=== PATIENT | female | born 1980 | race Two or more races ===

== ENCOUNTER 2020-12-06 06:48 | Inpatient (IN) ==
[2020-12-06] MEDS ORDERED: KETALAR ONE (06:58)
[2020-12-06] MEDS ORDERED: LR 1000 ML IV 1,000 ML IV ONE (06:58)
[2020-12-06] MEDS ORDERED: PEPCID 20 MG IV PREMIX* 20 MG/50 ML BAG IV ONE (06:58)
[2020-12-06] MEDS ORDERED: DECADRON INJ ONE (06:58)
[2020-12-06] MEDS ORDERED: OFIRMEV IV 1000 MG VIAL 1,000 MG/100 ML VIAL IV ONE (06:58)
[2020-12-06] MEDS ORDERED: BRIDION ONE (06:58)
[2020-12-06] MEDS ORDERED: ZEMURON 50 MG VIAL ONE (06:59)
[2020-12-06] MEDS ORDERED: ANCEF 1 GRAM IV PREMIX* 2 G/100 ML BAG IV ONE (07:01)
[2020-12-06] MEDS: D5 1/2 NS 1000 ML 1,000 ML IV ONE ×2 (07:01→07:10)
[2020-12-06] MEDS ORDERED: DILAUDID INJ ONE ×2 (07:04→10:27)
[2020-12-06] MEDS ORDERED: FENTANYL INJ 100 mcg ONE (07:05)
[2020-12-06] MEDS: D5 1/2 NS 1000 ML 1,000 ML IV SCH ×5 (07:10→23:34)
[2020-12-06] MEDS ORDERED: BETADINE SOLN ONE (07:15)
[2020-12-06] MEDS ORDERED: ProvayBLUE 0.5% ONE (07:15)
[2020-12-06] MEDS ORDERED: ANCEF VIAL 1 GRAM IVP ONE (07:15)
[2020-12-06] MEDS ORDERED: ULTANE GAS IN ONE (07:27)
[2020-12-06] MEDS ORDERED: EPHEDRINE SULFATE INJ ONE (07:27)
[2020-12-06] MEDS ORDERED: TORADOL 30 MG VIAL ONE (07:27)
[2020-12-06] MEDS ORDERED: ROBINUL ONE (07:27)
[2020-12-06] MEDS ORDERED: VERSED ONE (07:27)
[2020-12-06] MEDS ORDERED: DIPRIVAN VIAL ONE (07:27)
[2020-12-06] MEDS ORDERED: XYLOCAINE 2 % (PLAIN) ONE (07:27)
[2020-12-06] MEDS ORDERED: ZOFRAN INJ 4 MG VIAL ONE (07:27)
[2020-12-06] MEDS ORDERED: LACRI-LUBE S.O.P. ONE (07:27)
[2020-12-06 07:33] VITALS: BMI 32.5
[2020-12-06] MEDS ORDERED: BENADRYL INJ 50 MG VIAL IVP PRN ×2 (10:03→10:40)
[2020-12-06] MEDS ORDERED: PHENERGAN INJ 25 MG IM PRN (10:03)
[2020-12-06] MEDS ORDERED: BARHEMSYS INJ IVP PRN (10:03)
[2020-12-06] MEDS ORDERED: DILAUDID INJ IVP PRN (10:03)
[2020-12-06] MEDS ORDERED: MORPHINE SULFATE PCA 30 MG IVP PRN (10:40)
[2020-12-06] MEDS ORDERED: ZOFRAN INJ 4 MG VIAL IVP PRN (10:40)
[2020-12-06] MEDS ORDERED: TORADOL 30 MG VIAL IVP PRN (10:40)
[2020-12-06 16:18] LABS: HEMATOCRIT 28.3 % (36.0-47.0); HEMOGLOBIN 9.2 g/dL (12.0-16.0)
[2020-12-07 05:37] LABS: BASOPHILS % (AUTO) 0.4 % (0.2-1.0); EOSINOPHILS % (AUTO) 0.1 % (0.9-2.9); HEMATOCRIT 23.4 % (36.0-47.0); HEMOGLOBIN 7.8 g/dL (12.0-16.0); LYMPHOCYTES # (AUTO) 1.8 X10^3/uL (1.3-2.9); LYMPHOCYTES % (AUTO) 18.9 % (21.0-51.0); MEAN CORPUSCULAR HEMOGLOBIN 30.1 pg (27.0-34.0); MEAN CORPUSCULAR HGB CONC 33.2 g/dL (33.0-35.0); MEAN CORPUSCULAR VOLUME 90.8 fL (80.0-100.0); MEAN PLATELET VOLUME 11.2 fL (7.4-11.0); MONOCYTES % (AUTO) 10.7 % (0.0-13.0); NEUTROPHILS # (AUTO) 6.6 x10^3/uL (2.2-4.8); NEUTROPHILS % (AUTO) 69.9 % (42.0-75.0); PLATELET COUNT 183 X10^3/uL (150.0-450.0); RED BLOOD COUNT 2.58 X10^6/uL (3.5-5.4); RED CELL DISTRIBUTION WIDTH 19.9 % (11.6-16.5); WHITE BLOOD COUNT 9.5 X10^3/uL (3.6-10.0)
[2020-12-07 05:56] LABS: BLOOD UREA NITROGEN 6 mg/dL (7-18); CALCIUM 7.7 mg/dL (8.5-10.1); CARBON DIOXIDE 22.9 mmol/L (21-32); CHLORIDE 104 mmol/L (98-107); COR NA(FOR HYPERGLY) 137 mmol/L (136-145); CREATININE 0.59 mg/dL (0.55-1.02); SODIUM 136 mmol/L (136-145); eGFR NON BLACK RACES > 60 (>60)
[2020-12-07] MEDS: D5 1/2 NS 1000 ML 1,000 ML IV SCH ×5 (07:24→21:32)
[2020-12-07] MEDS: PROTONIX TAB 40 MG PO SCH (08:42)
[2020-12-07] MEDS: COLACE CAP 100 MG PO SCH ×2 (08:43→21:22)
[2020-12-07] MEDS ORDERED: PROTONIX INJ 40 MG VIAL IVP SCH (09:00)
[2020-12-07] MEDS: MOTRIN TAB 800 MG PO PRN ×2 (10:25→18:19)
[2020-12-07] MEDS: PERCOCET TAB 5/325 MG PO PRN ×2 (15:45→21:26)
[2020-12-07] MEDS: BACTROBAN TOPICAL OINT TOP SCH ×2 (15:45→21:23)
[2020-12-07] MEDS: FERROUS GLUCONATE PO SCH (17:25)
[2020-12-08] MEDS: D5 1/2 NS 1000 ML 1,000 ML IV SCH ×3 (02:13→07:09)
[2020-12-08] MEDS: FERROUS GLUCONATE PO SCH (07:04)
[2020-12-08] MEDS: PERCOCET TAB 5/325 MG PO PRN (07:04)
[2020-12-08] MEDS: BACTROBAN TOPICAL OINT TOP SCH (07:05)
[2020-12-08] MEDS: PROTONIX TAB 40 MG PO SCH (08:37)
[2020-12-08] MEDS: COLACE CAP 100 MG PO SCH (08:37)
[2020-12-08 08:50] VITALS: BP 115/70
[2020-12-08] MEDS: MOTRIN TAB 800 MG PO PRN (10:34)
== END 2020-12-08 11:40 | disposition home or self-care (01) | DRG 743 ==
LOC: MED/SURG 06:48
PROVIDERS: ADMIT Specialist; ATTEND Specialist
DX: R10.2 Pelvic and perineal pain; N83.291 Other ovarian cyst, right side; N92.5 Other specified irregular menstruation; D50.8 Other iron deficiency anemias